=== PATIENT | female | born 1970 ===

== ENCOUNTER → 2020-09-13 08:20 | Outpatient (REF) | payer SELFPAY ==
[2020-09-22 09:18] LABS: Alcohol, Blood (Medical)-Serum < 3.0 mg/dL
[2020-09-22 09:37] LABS: AST(SGOT) 636 U/L (15-37); Alanine Aminotransfer ALT/SGPT 947 U/L (13-56); Albumin, Serum 3.4 g/dL (3.2-5.0); Alkaline Phosphatase 985 U/L (45-117); Bilirubin, Direct 11.32 mg/dL (0.00-0.30); Globulin 4.4 g/dL (2.2-4.2); Protein, Total 7.8 g/dL (6.4-8.2)
[2020-09-22 10:19] LABS: Carbamazepine (Tegretol) 13.5 ug/mL (4.0-12.0); Digoxin Level 1.93 ng/mL (0.80-2.00)
== END ==
LOC: LABSURVEY 08:20
PROVIDERS: Visit Provider Pathology Anatomic Pathology & Clinical Pathology
DX: Z00.00 Encounter for general adult medical examination without abnormal findings (principal)
CPT/HCPCS: 80076; 80156; 80162; 80198; 80320; 82077; G0480